=== PATIENT | male | born 1975 | race Caucasian/White ===

== ENCOUNTER 2019-07-24 17:19 | Inpatient (IN) | payer OTHER, SELFPAY | END 2019-07-26 18:13 | DRG 885 | PROVIDERS: Admitting Provider Psychiatry & Neurology Psychiatry; Emergency Provider Family Medicine; Visit Provider Psychiatry & Neurology Psychiatry | DX: F33.2 Major depressive disorder, recurrent severe without psychotic features (principal); R45.851 Suicidal ideations; F39 Unspecified mood [affective] disorder ==

== ENCOUNTER → 2020-12-09 14:29 | Outpatient (BNVA) | payer OTHER, SELFPAY | PROVIDERS: PCP Family Medicine; Visit Provider Surgery | DX: Z11.52 Encounter for screening for COVID-19 (principal); K43.9 Ventral hernia without obstruction or gangrene | CPT/HCPCS: 87635 ==

== ENCOUNTER 2020-12-11 05:39 | Day surgery (SDC) | payer OTHER, SELFPAY ==
[2020-12-10 15:16] VITALS: BMI 34.3
[2020-12-11] VITALS (9 sets, daily range): BP systolic 126–162; BP diastolic 82–109; PULSE 67–83; RESP 12–20; TEMP 36.4–36.6; O2SAT 89–96
[2020-12-11] MEDS: sodium chloride 0.9% 1,000 ML 30 ML IV (06:22)
--- NOTE | 2020-12-11 06:34 | ANES.PREANE2 ---
Pre-Anesthetic Assessment Pre-Anesthetic Assessment: Height/Weight: Height 1.91 m Weight 124.738 kg Temp Pulse Resp BP Pulse Ox 97.8 F 83 16 126/83 95 12/11/20 06:18 12/11/20 06:18 12/11/20 06:18 12/11/20 06:18 12/11/20 06:18 Preop Diagnosis: Reducible ventral hernia Proposed Procedure: Operation Date: 12/11/20 07:00 Proposed Procedures p Laparoscopic possibley open Ventral Hernia Repair [id number] j43.9(Not Applicable) - Anjel Amaya MD Was Beta Harvey taken within 24 hours: N/A Was Clonidine taken within 24 hours: N/A Last intake: Intake Last Liquid Date 12/10/20 Last Liquid Time 20:30 Last Solid Date 12/10/20 Last Solid Time 20:30 Social: Social History: Tobacco (cigars) and No alcohol Exam: Pre-Anes Outpt Exam: alert, oriented x 3, clear to auscultation bilaterally and regular rate & rhythm Airway: Submandibular: WNL Cervical ROM: WNL MP: 2 Additional comments: Poor dentition CV/HEM: CV/HEM: HTN GI: GI: GERD Metabolic: Metabolic: Morbid obesity Neuropsych: Neuropsych: Depression Anesthetic Plan: ASA status: 3 Anesthesia: General Risk of > 500 ml blood loss (7ml/kg in children): No PFSH Anesthesia PFSH: Medical History (Updated 10/30/20 @ 08:33 by Anjel Amaya MD) Depression GERD (gastroesophageal reflux disease) Hypertension Surgical History (Updated 10/29/20 @ 13:29 by Anjel Amaya MD) History of appendectomy History of left knee surgery Status post left inguinal hernia repair Family History Grandmother Diabetes Father Stroke, Onset Age: 45 Social History Smoking and tobacco status: light tobacco smoker cigars Cigar details: just occasional Alcohol intake: current Alcohol intake frequency: holidays/special occasions only Data Anesthesia Cardiac Studies: No Data to Display
--- NOTE | 2020-12-11 06:52 | P.HP_ITS ---
Same Day Surgery H&P Indication for Procedure/HPI DATE OF PROCEDURE: December 11, 2020 CHIEF COMPLAINT/INDICATIONFOR SURGICAL PROCEDURE: ventral hernia repair PREOP DIAGNOSIS: Reducible ventral hernia PLANNED PROCEDRUE: Operation Date: 12/11/20 07:00 Proposed Procedures p Laparoscopic possibley open Ventral Hernia Repair [id number] j43.9(Not Applicable) - Anjel Amaya MD Medications/Allergies* Home Medications Medication Instructions Recorded Confirmed Type cetirizine 10 mg tablet 10 mg PO DAILY 10/10/20 12/11/20 History escitalopram oxalate 20 mg tablet 20 mg PO DAILY 10/10/20 12/11/20 History gabapentin 400 mg capsule 1,200 mg PO BID cap 10/10/20 12/11/20 History ibuprofen 800 mg tablet 800 mg PO TID 10/10/20 12/11/20 History pantoprazole 20 mg tablet,delayed 20 mg PO DAILY 10/10/20 12/11/20 History release quetiapine 200 mg tablet 200 mg PO BEDTIME 10/10/20 12/11/20 History trazodone 150 mg tablet 150 mg PO DAILY 10/10/20 12/11/20 History aspirin 325 mg PO DAILY 12/10/20 12/11/20 History Allergies/Adverse Reactions Allergy/AdvReac Type Severity Reaction Status Date / Time diclofenac Allergy ALGY-Hives Verified 12/10/20 15:11 Pertinent History/Comorbid Conditions* Medical History (Updated 10/30/20 @ 08:33 by Anjel Amaya MD) Depression GERD (gastroesophageal reflux disease) Hypertension Surgical History (Updated 10/29/20 @ 13:29 by Anjel Amaya MD) History of appendectomy History of left knee surgery Status post left inguinal hernia repair Family History (Updated 10/10/20 @ 09:46 by Emily Field LPN) Father Diabetes Grandmother Stroke Father, Onset Age: 45 Social History Smoking and tobacco status: light tobacco smoker cigars Cigar details: just occasional Alcohol intake: current Alcohol intake frequency: holidays/special occasions only Pertinent Exam Findings alert, oriented x 3 and regular rate & rhythm Recommendations Surgery/Procedure today Coding Level of Care Code Acute Software Quality Assurance Engineer for [employer]
--- NOTE | 2020-12-11 08:33 | SUR.PHASEI ---
0833-ORAL AIRWAY OUT, SIMPLE MASK AT 6LPM SAT 95%
--- NOTE | 2020-12-11 08:37 | P.OP_ITS ---
Operative Report Date of procedure: December 11, 2020 Pre-op Diagnosis: Incarcerated ventral hernia Post-op Diagnosis: Incarcerated ventral hernia containing preperitoneal fat measuring 5 x 5 cm Procedure Done: Laparoscopic repair of ventral hernia with proceed mesh measuring 15 x 15 cm Pathology: none sent Surgeon: Anjel Amaya Anesthesia: General Condition: stable Disposition: PACU Procedure: The patient was taken to the Operating Room and was intubated under general anesthesia after the antibiotic had been administered. The abdomen was prepped and draped in a sterile manner. Using a 15 blade, a 2-cm incision was made in the left upper quadrant in the anterior axillary line and pneumoperitoneum was created using Verres needle. A 10 mm Marine port was placed and 15 mm of pneumoperitoneum was created after a 10 mm 30? scope had been introduced. Two 5 mm ports were placed at the level of the umbilicus and in the left lower quadrant under direct visualization. Using a combination of electrocautery and scissors the peritoneum in the midline was taken down and the omental fat within the hernial sac was reduced. A spinal needle was introduced through the abdominal wall and the edges of the hernial defect were marked and measured 5x 5 cm. A 5 cm margin was marked on the abdominal wall on the outer edge of the hernial defect. 15 x 15 cm Proceed mesh was cut in an oval shape and 4 separate 2-0 [place]Se[place] sutures were placed at the 4 corners of the mesh. A 5 mm camera was introduced and the mesh was introduced through the 10 mm port. Grannie needle was passed through the stab incisions and used to grasp the free ends of the [place]-Sean sutures which were then used to pull the mesh up against the abdominal wall; 5 mm SecurStraps were placed 1 cm apart along the edge of the mesh to hold it against the abdominal wall. 20 of saline mixed with 20 cc of Exparel mixed with .5% Marcaine was infiltrated in the midclavicular line under laparoscopic visualization for a TAP block. At the end of this, it was noted that the mesh was well positioned over the hernial defect. All ports were removed under direct visualization and there was no bleeding noted from the port sites. The external oblique aponeurosis was approximated at this port site using figure of eight 0 Vicryl suture. The subcutaneous tissue was approximated using 3-0 Vicryl sutures. The skin at all 3 port sites was closed using subcuticular 4-0 Monocryl suture. The stab incisions and the 3 port sites were covered with Dermabond. Abdominal binder was placed at the end of the procedure. The patient was extubated and transferred to recovery room in stable condition.
[2020-12-11] MEDS: HYDROcodone-acetaminophen 5-325 mg Tablet 1 TAB PO (08:54)
--- NOTE | 2020-12-11 15:16 | ANE.PACU2 ---
Inpatient post-anesthesia follow up: Airway intact: Yes Vital signs: Temperature 98 F Pulse Rate 81 Respiratory Rate 16 Blood Pressure 145/86 Pulse Oximetry 96 Oxygen Delivery Me thod Room Air Oxygen Flow Rate 6 Fraction of Inspir ed Oxygen Hydration adequate: Yes Nausea and vomiting: No Pain level: 2 Mental status: Baseline
== END 2020-12-11 10:00 | disposition home or self-care (01) ==
PROVIDERS: PCP Family Medicine; Visit Provider Surgery
PROC: 0WQF4ZZ Repair Abdominal Wall, Percutaneous Endoscopic Approach (ICD-10-PCS; CPT 49653; principal; 2020-12-11 07:00)
DX: K43.6 Other and unspecified ventral hernia with obstruction, without gangrene (principal); I10 Essential (primary) hypertension; K21.9 Gastro-esophageal reflux disease without esophagitis; E66.01 Morbid (severe) obesity due to excess calories; Z68.34 Body mass index [BMI] 34.0-34.9, adult; F17.290 Nicotine dependence, other tobacco product, uncomplicated
CPT/HCPCS: 49653; C9290; J0690; J1100; J2250; J2370; J2405; J2704; J2710; J3010; J3490; J7030

== ENCOUNTER → 2021-09-22 09:29 | Outpatient (BNVA) | payer OTHER, SELFPAY | PROVIDERS: PCP Family Medicine; Referring Provider Family Medicine; Visit Provider Specialist | DX: M17.0 Bilateral primary osteoarthritis of knee (principal) | CPT/HCPCS: 73560; 73565 ==

== ENCOUNTER 2021-09-22 13:48 | Outpatient (CLI) | payer OTHER, SELFPAY | END 2021-09-22 13:49 | disposition home or self-care (01) | LOC: SPT 13:48 | PROVIDERS: PCP Family Medicine; Visit Provider Specialist | DX: Z46.89 Encounter for fitting and adjustment of other specified devices (principal); M25.561 Pain in right knee; M25.562 Pain in left knee | CPT/HCPCS: 97760; L1812 ==